=== PATIENT | female | born 2000 | race Caucasian/White ===

== ENCOUNTER 2024-10-08 09:55 | Outpatient (CLI) | payer OTHER | END 2024-10-08 10:39 | disposition home or self-care (01) | LOC: NST 09:55 | PROVIDERS: ATTEND Obstetrics & Gynecology Maternal & Fetal Medicine | DX: Z3A.36 36 weeks gestation of pregnancy (principal) ==

== ENCOUNTER 2024-10-22 02:15 | Inpatient (IN) | payer OTHER ==
[2024-10-22] VITALS (8 sets, daily range): BP systolic 106–131; BP diastolic 61–82; O2SAT 98
[~2024-10-22] VITALS: Ht 167.6 cm; Wt 68.0 kg
[2024-10-22] MEDS ORDERED: FOLIC ACID0.8 M1 (02:23)
[2024-10-22] MEDS ORDERED: ZITHROMAX500 MG PO (02:23)
[2024-10-22] MEDS ORDERED: RINGERS SOLUTION,LACTATED 1,000 ML IV SCH (02:30)
[2024-10-22] MEDS ORDERED: MORPHINE SULFATE 4 MG/ML VIAL IV PRN (02:30)
[2024-10-22] MEDS ORDERED: ONDANSETRON HCL 2 MG/ML VIAL IV ONE (02:30)
[2024-10-22 02:57] LABS: PH,URINE 6.5 (5.0-8.0); URINE APPEARANCE Clear; URINE BILIRRUBIN Negative (NEGATIVE); URINE BLOOD Negative; URINE COLOR Yellow; URINE GLUCOSE Negative (NEGATIVE); URINE KETONE Negative (NEGATIVE); URINE LEUKOCYTE Negative; URINE NITRATE Negative; URINE PROTEIN Trace (NEGATIVE); URINE UROBILINOGEN 0.2 E.U./dl
[2024-10-22 02:58] LABS: URINE BACTERIA 397.6 uL (0.0-1933); URINE EPITHELIAL CELLS 16.4 uL (0.0-38.8); URINE RBC 2.7 uL (0.0-20.8)
[2024-10-22 03:17] LABS: INR 0.96; PARTIAL THROMBOPLASTIN TIME 27.2 SECONDS (22.0-34.0); PROTHROMBIN TIME 10.5 SECONDS (9.0-11.5)
[2024-10-22 03:21] LABS: ALBUMIN 2.8 gm/dL (3.4-5.0); BILIRUBIN TOTAL 0.37 mg/dL (0.3-1.2); CALCIUM 9.2 mg/dL (8.5-10.1); CREATININE SERUM 0.65 mg/dL (0.55-1.02); GFR 111.06; GLOBULINA 4.2 G/DL (2.4-3.5); POTASSIUM 4.14 mEq/L (3.5-5.1)
[2024-10-22 04:23] LABS: HEMATOCRIT 34.4 % (36.0-45.00); HEMOGLOBIN 11.6 g/dL (12.0-15.00); MEAN CELL VOLUME 79.6 fL (80.00-100.00); MEAN CORPUSCULAR HEMOGLOBIN 26.9 pg (27.00-32.0); MEAN CORPUSCULAR HGB CONC 33.7 g/dl (32.0-36.0); PLATELET COUNT 186 K/uL (150-450); RED BLOOD COUNT 4.32 M/uL (4.00-6.00); RED CELL DISTRIBUTION WIDTH 15.2 % (11.5-14.5)
[2024-10-22] MEDS ORDERED: ERYTHROMYCIN BASE OPHT 1GM EACH TUBE OP ONE ×2 (05:34→07:15)
[2024-10-22] MEDS ORDERED: OXYTOCIN 20 UNITS/1000ML RL PIGGYBAG IV ONE (05:34)
[2024-10-22] MEDS ORDERED: LIDOCAINE HCL 1% 10ML VIAL ONE (05:35)
[2024-10-22] MEDS ORDERED: CHLORHEXIDINE GLUCONATE 120 ML BOTTLE TOP ONE (05:35)
[2024-10-22] MEDS ORDERED: OXYTOCIN 20 UNITS/500ML RL PIGGYBAG IV ONE (05:42)
[2024-10-22] MEDS ORDERED: OXYTOCIN 500 ML IV SCH (06:00)
[2024-10-22] MEDS ORDERED: CHLORHEXIDINE GLUCONATE 120 ML BOTTLE TP SCH (07:15)
[2024-10-22] MEDS ORDERED: LIDOCAINE HCL 1% 10ML VIAL IJ ONE (07:15)
[2024-10-22] MEDS ORDERED: IBUprofen 400 MG TABLET PO PRN (07:15)
[2024-10-22] MEDS ORDERED: OXYTOCIN 1,000 ML IV ONE (07:15)
[2024-10-22] MEDS ORDERED: PNV,CALCIUM 72/IRON/FOLIC ACID 1 TAB TABLET PO SCH (09:00)
[2024-10-22] MEDS ORDERED: DOCUSATE SODIUM 100MG CAP PO SCH (09:00)
[2024-10-23 00:25] VITALS: BP 107/69
[2024-10-23 07:23] LABS: HEMATOCRIT 32.7 % (36.0-45.00); HEMOGLOBIN 10.5 g/dL (12.0-15.00); MEAN CORPUSCULAR HEMOGLOBIN 26.4 pg (27.00-32.0); MEAN CORPUSCULAR HGB CONC 32.2 g/dl (32.0-36.0); PLATELET COUNT 196 K/uL (150-450); RED BLOOD COUNT 3.99 M/uL (4.00-6.00)
[2024-10-23 08:06] VITALS: BP 114/75
[2024-10-23 16:00] VITALS: BP 112/74
[2024-10-24] VITALS: BP 135/70
[2024-10-24 08:51] VITALS: BP 109/73
[2024-10-24 13:46] VITALS: BP 129/69
== END 2024-10-24 15:32 | disposition home or self-care (01) | DRG 807 ==
LOC: LDR 02:15 → OB/GYN 02:15 → LDR 02:35 → OB/GYN 08:54 → SURH 10-30 12:43
PROVIDERS: ADMIT Obstetrics & Gynecology Maternal & Fetal Medicine; ATTEND Obstetrics & Gynecology Gynecology
PROC: 10E0XZZ Delivery of Products of Conception, External Approach (ICD-10-PCS; principal; 2024-10-22)
PROC: 4A1HXCZ Monitoring of Products of Conception, Cardiac Rate, External Approach (ICD-10-PCS; 2024-10-22)
DX: O80 Encounter for full-term uncomplicated delivery (principal); Z37.0 Single live birth; Z3A.38 38 weeks gestation of pregnancy